=== PATIENT | female | born 1995 | race Caucasian/White ===

== ENCOUNTER 2019-04-11 12:40 | Emergency (ER) | payer MEDICAID, MEDICARE ==
[~2019-04-11] VITALS: Ht 162.6 cm; Wt 89.0 kg
[2019-04-11 12:44] VITALS: BP 115/74
[2019-04-11 13:32] VITALS: BP 115/74
== END 2019-04-11 13:32 | disposition home or self-care (01) ==
LOC: MED 12:40
DX: R21 Rash and other nonspecific skin eruption (principal); R11.0 Nausea; Z88.0 Allergy status to penicillin
CPT/HCPCS: 99282

== ENCOUNTER 2019-07-09 14:04 | Emergency (ER) | payer MEDICAID ==
[~2019-07-09] VITALS: Ht 165.1 cm; Wt 92.5 kg
[2019-07-09 14:16] VITALS: BP 143/82
--- NOTE | 2019-07-09 14:33 | NUR ---
PT TO BED 5 WITH STEADY GAIT
--- NOTE | 2019-07-09 14:40 | NUR ---
PT C/O SHARP RLQ ABDOMINAL PAIN RADIATING TO RT GROIN AREA, RUBIN, DIARRHEA, NAUSEA FOR 5 DAYS. -VOMITING. PMH: DENIES MEDS: DENIES . SKIN IS PINK/WARM/DRY; AAOX4 WITH EVEN AND STEADY GAIT; LUNGS CLEAR BL; HR EVEN AND REGULAR; PT DENIES ANY FEVER, CP, SOB, OR COUGH AT THIS TIME; PATIENT STATES PAIN OF 8/10 AT THIS TIME; VSS; PATIENT POSITIONED FOR COMFORT; HOB ELEVATED; BEDRAILS UP X2; BED DOWN. ER MD MADE AWARE OF PT STATUS.
[2019-07-09] MEDS ORDERED: NACL 0.9% 1,000 ML IV SCH (14:50)
[2019-07-09 15:27] LABS: BASOPHILS % (AUTO) 0.7 % (0.0-2.0); EOSINOPHILS # (AUTO) 0.1 K/uL (0-0.4); EOSINOPHILS % (AUTO) 2.7 % (0.0-4.0); HEMATOCRIT 39.8 % (36-48); LYMPHOCYTES # (AUTO) 0.8 K/uL (2.5-16.5); LYMPHOCYTES % (AUTO) 14.8 % (20.5-51.1); MEAN CORPUSCULAR HEMOGLOBIN 29 pg (27-31); MEAN CORPUSCULAR HGB CONC 33 g/dL (33-37); MEAN CORPUSCULAR VOLUME 88.5 fL (80-94); MONOCYTES # (AUTO) 0.3 K/uL (0.8-1.0); MONOCYTES % (AUTO) 6.6 % (1.7-9.3); NEUTROPHILS # (AUTO) 3.9 K/uL (1.8-7.7); NEUTROPHILS % (AUTO) 75.2 % (42.2-75.2); PLATELET COUNT (AUTO) 231 K/uL (140-450); RED CELL DISTRIBUTION WIDTH 13.1 % (11.6-13.7); WHITE BLOOD COUNT (AUTO) 5.2 K/uL (4.8-10.8)
[2019-07-09 15:51] LABS: ALBUMIN 3.9 g/dL (3.4-5.0); ANION GAP 15.9 (8-16); CARBON DIOXIDE 26.3 mmol/L (21-32); CREATININE 0.5 mg/dL (0.6-1.3); POTASSIUM 4.2 mmol/L (3.5-5.1); TOTAL BILIRUBIN 0.2 mg/dL (0.0-1.0)
[2019-07-09 16:19] LABS: APPEARANCE,URINE CLEAR (CLEAR); BILIRUBIN,URINE NEGATIVE (NEGATIVE); BLOOD, URINE NEGATIVE (NEGATIVE); COLOR,URINE YELLOW (YELLOW); LEUKOCYTE ESTERASE ,URINE NEGATIVE (NEGATIVE); NITRITE, URINE NEGATIVE (NEGATIVE); UGLUCOSE NEGATIVE (NEGATIVE)
--- NOTE | 2019-07-09 16:48 | NUR ---
PT STAYING IN BED. STATED SHE IS FINE BUT STILL HAVE SOME PAIN TO RIGHT ABD. NOTIFIED .
--- NOTE | 2019-07-09 18:45 | NUR ---
Patient discharged with v/s stable. Written and verbal after care instructions given and explained. Patient alert, oriented and verbalized understanding of instructions. Ambulatory with steady gait. All questions addressed prior to discharge. ID band removed. Patient advised to follow up with PMD. Rx of TAMIFLU given. Patient educated on indication of medication including possible reaction and side effects. Opportunity to ask questions provided and answered.
[2019-07-09 18:46] VITALS: BP 154/71
== END 2019-07-09 18:45 | disposition home or self-care (01) ==
LOC: MED 14:04
DX: R30.0 Dysuria (principal); J11.1 Influenza due to unidentified influenza virus with other respiratory manifestations; Z88.0 Allergy status to penicillin
CPT/HCPCS: 36415; 80053; 81003; 81025; 82150; 83690; 84703; 85025; 87804; 99283; J7030

== ENCOUNTER 2020-01-01 23:31 | Emergency (ER) | payer MEDICAID ==
[~2020-01-01] VITALS: Ht 165.1 cm; Wt 101.6 kg
[2020-01-01 23:36] VITALS: BP 137/79
[2020-01-02] MEDS ORDERED: KETOROLAC 30 MG/ML VIAL IVP ONE (01:25)
[2020-01-02] MEDS ORDERED: ONDANSETRON 4 MG/2 ML VIAL IVP ONE (01:25)
[2020-01-02] MEDS ORDERED: NACL 0.9% 1,000 ML IV ONE (01:25)
[2020-01-02 01:37] LABS: BASOPHILS # (AUTO) 0.1 K/uL (0.00-0.22); BASOPHILS % (AUTO) 0.8 % (0.0-2.0); EOSINOPHILS # (AUTO) 0.4 K/uL (0-0.4); EOSINOPHILS % (AUTO) 3.2 % (0.0-4.0); HEMOGLOBIN 12.4 g/dL (12.0-16.0); LYMPHOCYTES # (AUTO) 3.1 K/uL (2.5-16.5); LYMPHOCYTES % (AUTO) 27.1 % (20.5-51.1); MEAN CORPUSCULAR HEMOGLOBIN 29 pg (27-31); MEAN CORPUSCULAR HGB CONC 33 g/dL (33-37); MEAN CORPUSCULAR VOLUME 88.2 fL (80-94); MONOCYTES # (AUTO) 0.6 K/uL (0.8-1.0); MONOCYTES % (AUTO) 5.2 % (1.7-9.3); NEUTROPHILS # (AUTO) 7.3 K/uL (1.8-7.7); NEUTROPHILS % (AUTO) 63.7 % (42.2-75.2); PLATELET COUNT (AUTO) 307 K/uL (140-450); RED BLOOD CELL COUNT(AUTO) 4.31 MIL/uL (4.20-5.40); RED CELL DISTRIBUTION WIDTH 13.6 % (11.6-13.7); WHITE BLOOD COUNT (AUTO) 11.4 K/uL (4.8-10.8)
[2020-01-02 01:52] LABS: ALBUMIN 3.8 g/dL (3.4-5.0); ANION GAP 14.5 (8-16); CARBON DIOXIDE 25.6 mmol/L (21-32); CREATININE 0.7 mg/dL (0.6-1.3); POTASSIUM 4.1 mmol/L (3.5-5.1); TOTAL BILIRUBIN 0.2 mg/dL (0.0-1.0)
[2020-01-02 01:53] LABS: APPEARANCE,URINE CLEAR (CLEAR); BILIRUBIN,URINE NEGATIVE (NEGATIVE); BLOOD, URINE NEGATIVE (NEGATIVE); COLOR,URINE YELLOW (YELLOW); LEUKOCYTE ESTERASE ,URINE NEGATIVE (NEGATIVE); NITRITE, URINE NEGATIVE (NEGATIVE); UGLUCOSE NEGATIVE (NEGATIVE)
[2020-01-02 03:14] VITALS: BP 128/79
== END 2020-01-02 03:14 | disposition home or self-care (01) ==
LOC: MED 23:31
DX: R10.31 Right lower quadrant pain (principal); Z88.0 Allergy status to penicillin
CPT/HCPCS: 36415; 74176; 80053; 81003; 81025; 82150; 83690; 85025; 96374; 96375; 99284; J1885; J2405; J7030; 99283

== ENCOUNTER 2020-02-28 22:13 | Emergency (ER) | payer MEDICAID ==
[~2020-02-28] VITALS: Ht 165.1 cm; Wt 102.2 kg
[2020-02-28 22:34] VITALS: BP 124/82
--- NOTE | 2020-02-28 22:39 | NUR ---
PT TAKEN TO BED 4
--- NOTE | 2020-02-28 23:01 | NUR ---
25 Y/O F PRESENTS TO ED C/O HEADACHE, N/V X 1 DAY. PT STATES THAT SHE'S BEEN HAVING HEADACHE ALL DAY TODAY AND THREW UP ONCE PRIOR TO COMING TO ER. VSS. BED LOCKED AND IN LOWEST POSITION, SIDE RAIL UPX1. WILL CONTINUE TO MONITOR. MHX: DENIES ALLERGIES: SCARLETT
--- NOTE | 2020-02-28 23:43 | NUR ---
Dr. Talamantes examining patient.
[2020-02-28] MEDS ORDERED: ONDANSETRON 4 MG ODT PO ONE (23:50)
[2020-02-28] MEDS ORDERED: KETOROLAC 60 MG/2 ML VIAL IM ONE (23:50)
[2020-02-29 00:49] VITALS: BP 108/65
--- NOTE | 2020-02-29 00:49 | NUR ---
Patient discharged with v/s stable. Written and verbal after care instructions given and explained. Patient alert, oriented and verbalized understanding of instructions. Ambulatory with steady gait. All questions addressed prior to discharge. ID band removed. Patient advised to follow up with PMD. Rx of MOTRIN, ZOFRAN given. Patient educated on indication of medication including possible reaction and side effects. Opportunity to ask questions provided and answered.
== END 2020-02-29 00:49 | disposition home or self-care (01) ==
LOC: MED 22:13
DX: R51 Headache (principal); R11.2 Nausea with vomiting, unspecified; Z88.0 Allergy status to penicillin
CPT/HCPCS: 81002; 81025; 96372; 99283; J1885; Q0162

== ENCOUNTER 2024-02-08 01:23 | Emergency (ER) | payer MEDICAID, OTHER ==
[~2024-02-08] VITALS: Ht 165.1 cm; Wt 103.4 kg
[2024-02-08 01:24] VITALS: BP 134/54; PULSE 72; RESP 16; TEMP 96.9; O2SAT 98
[2024-02-08] MEDS ORDERED: KEN.025C TP (02:29)
[2024-02-08] MEDS: diphenhydrAMINE 50 MG CAP PO ONE (02:33)
== END 2024-02-08 02:56 | disposition home or self-care (01) ==
LOC: MED 01:23
DX: R21 Rash and other nonspecific skin eruption (principal); Z79.899 Other long term (current) drug therapy; Z88.0 Allergy status to penicillin
CPT/HCPCS: 99283; Q0163